=== PATIENT | male | born 1945 | race Caucasian/White ===

== ENCOUNTER 2017-06-18 06:55 | Day surgery (SDC) | payer MEDICARE, OTHER ==
[2017-06-18] MEDS ORDERED: Lactated Ringers 1,000 ML IV SCH (07:15)
[2017-06-18] MEDS ORDERED: Lidocaine 2% 100 MG/5 ML Syringe IVPUSH ONE (08:30)
[2017-06-18] MEDS ORDERED: Propofol 200 MG/20 ML SDV IV ONE (08:30)
[2017-06-18] MEDS ORDERED: Midazolam 1 MG/ML 2 ML SDV IV ONE (08:30)
--- NOTE | 2017-06-18 09:12 | PCM.OPNOTE ---
- General Post-Op/Procedure Note Date of Surgery/Procedure: 06/18/17 Operative Procedure(s): c scope with bx Findings: ascending colon polyp x2 scattered diverticulosis Pre Op Diagnosis: screening Post-Op Diagnosis: ascending colon polyp x2. scattered diverticulosis Anesthesia Technique: DONATO Primary Surgeon: Riky Flores Anesthesia Provider: Maddie Bennett Pathology: ascending colon polyp x2 Complications: None Condition: Good Free Text/Narrative:: see dictation
--- NOTE | 2017-06-18 14:10 | OR ---
DATE OF OPERATION: 06/18/2017 SURGEON: Riky Flores MD PROCEDURE PERFORMED: Colonoscopy with cold forceps biopsy. PREOPERATIVE DIAGNOSIS: Colon cancer screening. POSTOPERATIVE DIAGNOSIS: Polyp of the ascending colon x2 and scattered diverticula. INDICATIONS FOR PROCEDURE: This is a 71-year-old white male who presents for a followup colonoscopy. His last screening exam was 10 years ago. He was offered and accepted same. DESCRIPTION OF OPERATION: After an excellent IV sedation was administered, digital rectal exam was performed. No marked abnormality was noted. Flexible colonoscope was inserted and advanced without difficulty to the cecum. The prep was excellent. The following findings were noted. Ascending colon, just proximal to the cecum, two small polypoid lesions were encountered. These were biopsied and submitted in one container. Transverse colon was unremarkable. Descending colon, occasional diverticula. Sigmoid, occasional diverticula. Rectum and anus, unremarkable. Colon was deflated as the scope was removed. The patient tolerated the procedure well, and was taken to recovery room in good condition. /[id number] /MODL
== END 2017-06-18 11:00 | disposition home or self-care (01) ==
LOC: FB.SDS 06:55
PROVIDERS: ATTEND Surgery
DX: Z12.11 Encounter for screening for malignant neoplasm of colon (principal); D12.2 Benign neoplasm of ascending colon; K57.30 Diverticulosis of large intestine without perforation or abscess without bleeding; I25.10 Atherosclerotic heart disease of native coronary artery without angina pectoris; K21.9 Gastro-esophageal reflux disease without esophagitis; I10 Essential (primary) hypertension; E78.5 Hyperlipidemia, unspecified; J30.81 Allergic rhinitis due to animal (cat) (dog) hair and dander; Z79.82 Long term (current) use of aspirin; Z79.899 Other long term (current) drug therapy; Z98.890 Other specified postprocedural states; Z87.891 Personal history of nicotine dependence
CPT/HCPCS: 00810; 45380; 88305; J2250; J2704; J7120